=== PATIENT | male | born 2000 | race Caucasian/White ===

== ENCOUNTER 2024-05-21 21:02 | Emergency (ER) | payer OTHER, SELFPAY ==
[2024-05-21 21:17] VITALS: BP 137/81; PULSE 63; RESP 16; TEMP 36.9; O2SAT 99
[2024-05-21] MEDS: tetanus-dipt-pertussis 0.5 mL SDV IM (22:05)
[2024-05-21] MEDS: amoxicillin-clav 875-125 mg Tablet 1 TAB PO (22:05)
[2024-05-21 22:25] LABS: Amphetamines Screen Urine Negative (Negative); Barbiturates Screen Urine Negative (Negative); Benzodiazepines Screen Urine Negative (Negative); Cocaine Screen Urine Negative (Negative); Opiate Screen Urine Negative (Negative); PCP Screen Urine Negative (Negative); THC Screen Urine Positive (Negative)
[2024-05-21 22:46] VITALS: BP 126/76; PULSE 63; RESP 16; O2SAT 99
--- NOTE | 2024-05-21 23:04 | ED_ITS ---
HPI - Animal Bite General: Chief Complaint: Animal Bite Stated Complaint: bit by dog right leg Time Seen by Provider: 05/21/24 21:27 Source: patient Mode of arrival: ambulatory Limitations: no limitations History of Present Illness: Patient is a 24-year-old male presenting to the emergency department complaining of dog bite. 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 Controlled bleeding on arrival. States tetanus is not up-to-date. He states he is unknown of dog's vaccination status, however PD was contacted and are bringing the dog in for monitoring. No fevers, abdominal pain, or other symptoms reported at this time. MD complaint: animal bite Onset (ago): hour(s) Animal: dog Description of animal: immunizations unknown and appeared well Mechanism: bite Location - Extremities: Right: knee (Medial) Context: unprovoked Associated symptoms: Deny chills, fever(s) or headache(s) Related Data Previous Rx's Medication Instructions Recorded ketoconazole 2 % shampoo 1 applic topical ONCE #120 mL 05/10/22 ketoconazole 2 % topical cream 1 applic topical BID #30 grams 05/10/22 Differin 0.3 % topical gel with 1 applic topical DAILY #45 grams 07/18/22 pump (adapalene) clindamycin 1.2 % (1 % 1 applic topical DAILY #45 grams 07/18/22 base)-benzoyl peroxide 5 % topical gel amoxicillin 875 mg-potassium 1 tab PO BID 10 days #20 tabs 05/21/24 clavulanate 125 mg tablet Allergies Allergy/AdvReac Type Severity Reaction Status Date / Time latex Allergy rash Verified 05/21/24 21:22 Review of Systems General: Reports: 10 or more systems reviewed and unremarkable except in HPI and below Const: Denies: fever(s) or chills Card: Denies: chest pain Resp: Denies: dyspnea GI: Denies: abdominal pain, nausea, vomiting or diarrhea Musc: Denies: extremity pain or joint pain Skin/Breast: Reports: new lesions (Dog bite); Denies: rash, skin pain or skin tenderness Neuro: Denies: headache(s) Physical Exam Const: COMMON NORMALS: no acute distress, average body habitus, patient valeria ented x3, no limitations, healthy appearing, alert and well nourished HENMT: COMMON NORMALS: normocephalic and atraumatic HEAD & SCALP: normocephalic and atraumatic Neck/C-Spine: COMMON NORMALS: full ROM, no lymphadenopathy, supple and no meningeal signs Resp: COMMON NORMALS: normal respiratory effort, No use of accessory muscles and clear to auscultation bilaterally AUSCULTATION: clear to auscultation bilaterally Cardio: COMMON NORMALS: regular rate and regular rhythm RATE: regular rate RHYTHM: regular rhythm Extremity: COMMON NORMALS: full ROM and capillary refill normal Neuro: COMMON NORMALS: patient oriented x3 SENSORIUM/ORIENTATION: Yes alert MENINGEAL SIGNS: Yes no meningeal signs Skin: COMMON NORMALS: turgor normal NARRATIVE SKIN EXAM: 2 superficial bite lowe noted to medial knee joint, no active bleeding. Very superficial, does not involve adiposity or muscle layer. GENERAL SKIN EXAM: turgor normal Course Vital Signs: Vital signs: Vital Signs Temperature 98.5 F 05/21/24 21:17 Pulse Rate 63 05/21/24 22:46 Respiratory Rate 16 05/21/24 22:46 Blood Pressure 126/76 05/21/24 22:46 Pulse Oximetry 99 05/21/24 22:46 Oxygen Delivery Me thod Room Air 05/21/24 21:17 MDM - Animal Bite Medical Decision Making Patient bit while at work, they did request urine drug screen for Worker's Comp. This was obtained. Local PD states that they are unable to get dog's vaccination status however can monitor the patient in the pound for extended period of time for any abnormal signs or symptoms of rabies. Patient's tetanus was updated today, he will be started on Augmentin. With any abnormalities of the dog's behavioral status, he is instructed to return immediately for beginning rabies vaccination series. All of the questions and concerns addressed. Lab Data Laboratory Results Urine Opiates Screen Negative ng/mL (Negative) 05/21/24 22:00 Ur Barbiturates Screen Negative ng/mL (Negative) 05/21/24 22:00 Ur Phencyclidine Scrn Negative ng/mL (Negative) 05/21/24 22:00 Ur Amphetamines Screen Negative ng/mL (Negative) 05/21/24 22:00 U Benzodiazepines Scrn Negative ng/mL (Negative) 05/21/24 22:00 Urine Cocaine Screen Negative ng/mL (Negative) 05/21/24 22:00 U Marijuana (THC) Screen Positive ng/mL (Negative) H 05/21/24 22:00 No radiology studies performed this visit Discharge Plan Discharge Patient Disposition: Home Clinical Impression: Dog bite Condition: Stable Prescriptions: New amoxicillin-pot clavulanate 875-125 mg tablet 1 tab PO BID 10 Days Qty: 20 0RF No Action ketoconazole 2 % cream 1 applic topical BID Qty: 30 6RF Rx Instructions: Apply to red-scaly areas on face 2 times daily until clear. may resume as needed ketoconazole 2 % shampoo 1 applic topical ONCE Qty: 120 2RF Rx Instructions: Use as body wash and allow to sit 5 min before rinsing. Repeat daily for 21 days then as needed for flares clindamycin-benzoyl peroxide 1.2 %(1 % base) -5 % gel 1 applic topical DAILY Qty: 45 6RF Rx Instructions: Apply thin film to face, chest, and back every morning. May bleach clothes adapalene [Differin] 0.3 % gel with pump 1 applic topical DAILY Qty: 45 4RF Rx Instructions: Apply pea sized amount to clean, dry face nightly. ( Differin with pump) Discharge Orders: Discharge ED (Routine); Ordered 05/21/24 Ordered By: Seven Spivey Patient Instructions: Animal Bite (ED) Activity Restrictions/Additional Instructions: Make sure that dog is vaccinated or can be monitored for any abnormal signs or symptoms of rabies, and return to the emergency department as discussed. Take antibiotics as prescribed. Your tetanus was updated today. Tylenol/ibuprofen for pain. Apply ice. Follow-up with primary care and return with any new or worsening Coding Level of Care Code ED Drawer In [employer]oom for Krystle Somers
== END 2024-05-21 22:48 | disposition home or self-care (01) ==
PROVIDERS: Emergency Provider Physician Assistant
DX: S81.051A Open bite, right knee, initial encounter (principal); W54.0XXA Bitten by dog, initial encounter; Y99.0 Civilian activity done for income or pay
CPT/HCPCS: 80306; 90471; 90715; 99283

== ENCOUNTER 2024-05-26 23:10 | Emergency (ER) | payer OTHER, SELFPAY ==
[2024-05-26 23:19] VITALS: BP 142/83; PULSE 74; RESP 16; TEMP 36.6; O2SAT 99
--- NOTE | 2024-05-26 23:42 | W.ED.ANIMALB ---
HPI - Animal Bite General: Chief Complaint: Animal Bite Stated Complaint: Wants Rabies Shots Time Seen by Provider: 05/26/24 23:16 Source: patient Mode of arrival: ambulatory Limitations: no limitations History of Present Illness: Patient is a 24-year-old male who presents to the emergency department due to a dog bite late last week, and is requesting vaccination series. I did see this patient myself, started him on antibiotics and at that time the dog was quarantined by the police. Patient states that his parents want him to begin the vaccination series despite dog being quarantined, it was also found out the dog's vaccinations are not up-to-date. Patient is not having any new symptoms at this time. MD complaint: animal bite Onset (ago): day(s) Animal: dog Mechanism: bite Location - Extremities: Right: knee Associated symptoms: Deny chills, fever(s) or headache(s) Related Data Previous Rx's Medication Instructions Recorded ketoconazole 2 % shampoo 1 applic topical ONCE #120 mL 05/10/22 ketoconazole 2 % topical cream 1 applic topical BID #30 grams 05/10/22 Differin 0.3 % topical gel with 1 applic topical DAILY #45 grams 07/18/22 pump (adapalene) clindamycin 1.2 % (1 % 1 applic topical DAILY #45 grams 07/18/22 base)-benzoyl peroxide 5 % topical gel amoxicillin 875 mg-potassium 1 tab PO BID 10 days #20 tabs 05/21/24 clavulanate 125 mg tablet Allergies Allergy/AdvReac Type Severity Reaction Status Date / Time latex Allergy rash Verified 05/26/24 23:21 Review of Systems General: Reports: 10 or more systems reviewed and unremarkable except in HPI and below and Other (Presenting for rabies vaccination series) Const: Denies: fever(s) or chills Card: Denies: chest pain Resp: Denies: dyspnea GI: Denies: abdominal pain, nausea, vomiting or diarrhea Musc: Denies: extremity pain or joint pain Skin/Breast: Reports: changing lesions (Healing dog bite to medial right knee); Denies: rash, skin pain or skin tenderness Neuro: Denies: headache(s) Physical Exam Const: COMMON NORMALS: no acute distress, average body habitus, patient oriented x3, no limitations, healthy appearing, alert and well nourished HENMT: COMMON NORMALS: normocephalic and atraumatic HEAD & SCALP: normocephalic and atraumatic Neck/C-Spine: COMMON NORMALS: full ROM, no lymphadenopathy, supple and no meningeal signs Resp: COMMON NORMALS: normal respiratory effort, No use of accessory muscles and clear to auscultation bilaterally AUSCULTATION: clear to auscultation bilaterally Cardio: COMMON NORMALS: regular rate and regular rhythm RATE: regular rate RHYTHM: regular rhythm Extremity: COMMON NORMALS: full ROM and capillary refill normal Neuro: COMMON NORMALS: patient oriented x3 SENSORIUM/ORIENTATION: Yes alert MENINGEAL SIGNS: Yes no meningeal signs Skin: COMMON NORMALS: turgor normal NARRATIVE SKIN EXAM: Well-healing, scabbed over small bite vincent to medial right knee. GENERAL SKIN EXAM: turgor normal Course Vital Signs: Vital signs: Vital Signs Temperature 97.8 F 05/26/24 23:19 Pulse Rate 74 05/26/24 23:19 Respiratory Rate 16 05/26/24 23:19 Blood Pressure 142/83 05/26/24 23:19 Pulse Oximetry 99 05/26/24 23:19 Oxygen Delivery Me thod Room Air 05/26/24 23:19 MDM - Animal Bite Medical Decision Making I did see this patient myself late last week with the initial injury, we had elected to monitor the dog at the pound by the police, and began antibiotics. He states that his parents want him to begin the series despite dog being monitored, will he started HyperRAB and first dose of RabAvert here in the emergency department. Informed him where to go for next series, and return cautions given. He is to continue taking antibiotics. No radiology studies performed this visit Discharge Plan Discharge Patient Disposition: Home Clinical Impression: Dog bite Condition: Stable Prescriptions: No Action ketoconazole 2 % cream 1 applic topical BID Qty: 30 6RF Rx Instructions: Apply to red-scaly areas on face 2 times daily until clear. may resume as needed ketoconazole 2 % shampoo 1 applic topical ONCE Qty: 120 2RF Rx Instructions: Use as body wash and allow to sit 5 min before rinsing. Repeat daily for 21 days then as needed for flares clindamycin-benzoyl peroxide 1.2 %(1 % base) -5 % gel 1 applic topical DAILY Qty: 45 6RF Rx Instructions: Apply thin film to face, chest, and back every morning. May bleach clothes adapalene [Differin] 0.3 % gel with pump 1 applic topical DAILY Qty: 45 4RF Rx Instructions: Apply pea sized amount to clean, dry face nightly. ( Differin with pump) amoxicillin-pot clavulanate 875-125 mg tablet 1 tab PO BID 10 Days Qty: 20 0RF Discharge Orders: Discharge ED (Routine); Ordered 05/26/24 Ordered By: Seven Spivey Patient Instructions: Rabies (ED) Activity Restrictions/Additional Instructions: Follow instructions for next rabies vaccination dose at the infusion center. Continue taking your antibiotics. Return with any new or worsening. Coding Level of Care Code ED New Media Strategist for Krystle Somers
[2024-05-27] MEDS: rabies vaccine 2.5 unit SDV IM (00:06)
[2024-05-27] MEDS: rabies IG 300 unit/mL SDV 1 mL 1710 UNIT IM (00:07)
== END 2024-05-27 00:35 | disposition home or self-care (01) ==
PROVIDERS: Emergency Provider Physician Assistant
DX: Z29.14 Encounter for prophylactic rabies immune globulin (principal); S81.051A Open bite, right knee, initial encounter; W54.0XXA Bitten by dog, initial encounter
CPT/HCPCS: 90375; 90471; 90675; 96372; 99283

== ENCOUNTER 2024-06-09 15:30 | Oncology outpatient (recurring) (ONCR) | payer OTHER, SELFPAY ==
[2024-05-29] MEDS: rabies vaccine 2.5 unit SDV IM (11:04)
[2024-06-03] MEDS: rabies vaccine 2.5 unit SDV IM (15:40)
== END 2024-06-27 23:59 | disposition home or self-care (01) ==
PROVIDERS: Visit Provider Physician Assistant
DX: Z53.9 Procedure and treatment not carried out, unspecified reason (principal)
CPT/HCPCS: 90471; 90675